=== PATIENT | female | born 1990 | race African-American/Black ===

== ENCOUNTER 2020-10-01 13:29 | Inpatient (IN) ==
[2020-10-01 18:01] LABS: Basophils % 0.2 % (0.0-0.8); Eosinophils # 0.1 10*3/uL (0.0-0.87); Eosinophils % 1.4 % (0.00-10.9); Hematocrit 31.2 VOL% (35.7-47.0); Hemoglobin 10.6 GM/DL (12.0-16.0); Immature Granulocytes % 0.4 %; Immature Granulocytes Absolute 0.04 #; Lymphocytes # 1.7 10*3/uL (1.4-4.0); Lymphocytes % 16.9 % (21.3-54.2); Mean Corpuscular Volume 89.9 FL (87-102); Monocytes % 6.6 % (1.7-12.7); Neutrophils % 74.5 % (38.7-73.9); Platelet Count 270 T/CUMM (130-400); Red Blood Count 3.47 MC/CUMM (3.8-5.5); Red Cell Distribution Width 11.9 % (9.3-17.3); White Blood Count 10.2 T/CUMM (4-12)
[2020-10-01 18:25] LABS: Alanine Aminotransferase 16 U/L (13-56); Albumin 2.7 G/DL (3.4-5.0); Alkaline Phosphatase 63 U/L (45-117); Aspartate Amino Transferase 15 U/L (0-37); Bilirubin,Total < 0.39 MG/DL (0.20-1.00); Blood Urea Nitrogen 8 MG/DL (7-18); Calcium 8.7 MG/DL (8.5-10.1); Carbon Dioxide 24 MMOL/L (21-32); Estimated Glom Filtration Rate 147 ML/MIN; Glucose 94 MG/DL (74-106); Potassium 3.5 MMOL/L (3.5-5.1); Sodium 136 MMOL/L (136-145)
[2020-10-01] MEDS ORDERED: ONDANSETRON 4 MG/2 ML VIAL IV STA (19:11)
[2020-10-01] MEDS ORDERED: PIPERACILLIN/TAZOBACTAM 3,375 MG in SODIUM CHLORIDE 0.9% 100 ML IV STA (19:11)
[2020-10-01] MEDS ORDERED: MORPHINE 2 MG/1 ML SYRINGE IV STA (19:11)
[2020-10-01] MEDS ORDERED: ACETAMINOPHEN 325 MG TABLET PO PRN (19:21)
[2020-10-01] MEDS ORDERED: MORPHINE 2 MG/1 ML SYRINGE IV PRN (19:21)
[2020-10-01] MEDS: PANTOPRAZOLE 40 MG TABLET PO SCH (22:51)
[2020-10-01] MEDS: LACTATED RINGERS 1,000 ML IV SCH (22:52)
[2020-10-02] MEDS: PIPERACILLIN/TAZOBACTAM 3,375 MG in SODIUM CHLORIDE 0.9% 100 ML IV SCH ×3 (03:46→20:47)
[2020-10-02] MEDS ORDERED: BUPIVACAINE SPINAL 0.75% 2 ML AMP SPINAL ONE ×2 (08:18→08:48)
[2020-10-02] MEDS: PANTOPRAZOLE 40 MG TABLET PO SCH (11:11)
[2020-10-02] MEDS: ONDANSETRON 4 MG/2 ML VIAL IV PRN (20:49)
[2020-10-02] MEDS: LACTATED RINGERS 1,000 ML IV SCH (23:40)
[2020-10-03] MEDS: LACTATED RINGERS 1,000 ML IV SCH ×2 (00:13→19:43)
[2020-10-03] MEDS: PIPERACILLIN/TAZOBACTAM 3,375 MG in SODIUM CHLORIDE 0.9% 100 ML IV SCH ×3 (03:52→20:52)
[2020-10-03] MEDS ORDERED: HYDROmorphone 2 MG/1 ML VIAL IV PRN ×2 (08:04→15:11)
[2020-10-03] MEDS: PANTOPRAZOLE 40 MG TABLET PO SCH (09:30)
[2020-10-03] MEDS ORDERED: SODIUM HYPOCHLORITE 0.25% IRRIG 473 ML BOTTLE TOP SCH (15:30)
[2020-10-03] MEDS: ONDANSETRON 4 MG/2 ML VIAL IV PRN (19:40)
[2020-10-04] MEDS: PIPERACILLIN/TAZOBACTAM 3,375 MG in SODIUM CHLORIDE 0.9% 100 ML IV SCH (04:52)
[2020-10-04] MEDS: LACTATED RINGERS 1,000 ML IV SCH (04:52)
[2020-10-04] MEDS: PANTOPRAZOLE 40 MG TABLET PO SCH (08:57)
[2020-10-04 11:55] VITALS: BP 107/57
== END 2020-10-04 13:34 | disposition home or self-care (01) | DRG 547 ==
LOC: N.EDINP 13:29 → N.ED 13:29 → N.3E 22:44
PROVIDERS: ADMIT Surgery; ATTEND Surgery